=== PATIENT | male | born 1965 | race African-American/Black ===

== ENCOUNTER 2021-01-20 20:22 | Emergency (ER) | payer SELFPAY ==
[~2021-01-20] VITALS: Ht 175.3 cm; Wt 81.6 kg
[2021-01-20 20:23] VITALS: BP 164/113
== END 2021-01-21 01:40 | disposition home or self-care (01) ==
LOC: ER 20:25
DX: S13.9XXA Sprain of joints and ligaments of unspecified parts of neck, initial encounter (principal); S33.5XXA Sprain of ligaments of lumbar spine, initial encounter; M62.838 Other muscle spasm; V89.2XXA Person injured in unspecified motor-vehicle accident, traffic, initial encounter; Y93.I9 Activity, other involving external motion; Y92.89 Other specified places as the place of occurrence of the external cause; Y99.8 Other external cause status
CPT/HCPCS: 72125; 72131